=== PATIENT | male | born 1935 | race Caucasian/White ===

== ENCOUNTER 2021-06-06 10:47 | Emergency (ER) | payer MEDICARE, OTHER ==
[2021-06-06] MEDS: Sodium Chloride 0.9% 1,000 ML IV ONE (11:10)
[2021-06-06] MEDS: Ondansetron 4 MG/2 ML SDV IVPUSH ONE (11:10)
[2021-06-06] MEDS: Sodium Chloride 0.9% 1,000 ML ONE (11:25)
[2021-06-06] MEDS: Ondansetron 4 MG/2 ML SDV ONE (11:27)
[2021-06-06 11:34] LABS: ANION GAP 17.6 mmol/L (5-15); CHLORIDE,CL 106 mmol/L (98-107); SODIUM,NA 143 mmol/L (136-145)
[2021-06-06 13:07] VITALS: BP 158/74; PULSE 58
== END 2021-06-06 13:25 | disposition home or self-care (01) ==
LOC: KA.ED 10:47
DX: R55 Syncope and collapse (principal); R11.2 Nausea with vomiting, unspecified; I10 Essential (primary) hypertension; Z88.5 Allergy status to narcotic agent; Z79.82 Long term (current) use of aspirin; Z79.899 Other long term (current) drug therapy
CPT/HCPCS: 36415; 70450; 80053; 81001; 83880; 84484; 85025; 85610; 85730; 93005; 93010; 96374; 99284; 99285-25; J2405; J7030

== ENCOUNTER 2023-06-11 12:28 | Emergency (ER) | payer MEDICARE ==
[2023-06-11] MEDS: Nitroglycerin 0.4 MG Tab.SL ONE (12:54)
[2023-06-11] MEDS: Aspirin 81 MG Tab.Chew ONE (12:54)
[2023-06-11] MEDS: Aspirin 81 MG Tab.Chew PO ONE (12:55)
[2023-06-11] MEDS: Nitroglycerin 0.4 MG Tab.SL SL PRN (12:56)
[2023-06-11 12:57] LABS: BASOPHILS ABSOLUTE AUTO 0.06 10^3/uL (0.00-0.10); BASOPHILS PERCENT AUTO 0.5 % (0.0-1.0); EOSINOPHILS ABSOLUTE AUTO 0.13 10^3/uL (0.10-0.30); EOSINOPHILS PERCENT AUTO 1.2 % (1.0-3.0); HEMATOCRIT 41.3 % (40.0-52.0); HEMOGLOBIN 14.4 g/dL (13.0-17.0); IMMATURE GRAN ABSOLUTE AUTO 0.03 10^3/uL (0.00-0.50); IMMATURE GRAN PERCENT AUTO 0.3 % (0.0-5.0); LYMPHOCYTES PERCENT AUTO 24.2 % (20.0-40.0); MEAN CORPUSCULAR HEMOGLOBIN 32.6 pg (27.0-31.0); MEAN CORPUSCULAR HGB CONC 34.9 g/dL (32.0-36.0); MEAN CORPUSCULAR VOLUME 93.4 fL (82.0-92.0); MEAN PLATELET VOLUME 9.6 fL (7.4-10.4); MONOCYTES ABSOLUTE AUTO 1.36 10^3/uL (0.10-0.80); MONOCYTES PERCENT AUTO 12.2 % (2.0-8.0); NEUTROPHILS ABSOLUTE AUTO 6.89 10^3/uL (2.50-7.00); NEUTROPHILS PERCENT AUTO 61.6 % (50.0-70.0); PLATELET COUNT,PLT 216 10^3/uL (150-400); RED BLOOD CELL COUNT 4.42 10^6/uL (4.50-6.00); RED CELL DISTRIBUTION WIDTH 13.3 % (11.5-14.5); WHITE BLOOD CELL COUNT,WBC 11.17 10^3/uL (5.00-10.00)
[2023-06-11 13:14] LABS: ALANINE AMINOTRANSFERASE,ALT 16 U/L (14-63); ALKALINE PHOSPHATASE 43 U/L (46-116); ANION GAP 11.5 mmol/L (5-15); ASPARTATE AMNIOTRANSFERASE,AST 14 U/L (15-37); BILIRUBIN TOTAL 0.6 mg/dL (0.2-1.0); BLOOD UREA NITROGEN,BUN 23 mg/dL (7-18); CARBON DIOXIDE,CO2 26.8 mmol/L (21.0-32.0); CHLORIDE,CL 105 mmol/L (98-107); CREATININE 0.94 mg/dL (0.51-1.17); GLUCOSE RANDOM 97 mg/dL (70-140); POTASSIUM,K 4.3 mmol/L (3.5-5.1); PROTEIN TOTAL,TP 6.8 g/dL (6.4-8.2); SODIUM,NA 139 mmol/L (136-145)
[2023-06-11 13:21] LABS: CALCIUM 8.5 mg/dL (8.7-10.3)
[2023-06-11 13:24] LABS: ESTIMATED GFR 79 mL/min (>=60)
[2023-06-11 14:12] VITALS: BP 168/100; PULSE 68
== END 2023-06-11 16:10 | disposition home or self-care (01) ==
LOC: KA.ED 12:28
DX: I20.9 Angina pectoris, unspecified (principal); R79.89 Other specified abnormal findings of blood chemistry; I10 Essential (primary) hypertension; Z88.8 Allergy status to other drugs, medicaments and biological substances; Z88.5 Allergy status to narcotic agent; Z91.018 Allergy to other foods; Z79.82 Long term (current) use of aspirin; Z79.899 Other long term (current) drug therapy; Z86.19 Personal history of other infectious and parasitic diseases; Z90.49 Acquired absence of other specified parts of digestive tract
CPT/HCPCS: 36415; 71045; 80053; 84484; 85025; 99285; A9270; 93010; 99284

== ENCOUNTER 2023-06-18 11:05 | Emergency (ER) | payer MEDICARE ==
[2023-06-18 11:54] LABS: BILIRUBIN TOTAL 0.6 mg/dL (0.2-1.0); CREATININE 0.96 mg/dL (0.51-1.17); EST CRCL DRUG DOSING (CG) 57.03 mL/min
[2023-06-18] MEDS: Sodium Chloride 0.9% 1,000 ML IV ONE (12:02)
[2023-06-18 12:04] LABS: BASOPHILS ABSOLUTE AUTO 0.04 10^3/uL (0.00-0.10); BASOPHILS PERCENT AUTO 0.3 % (0.0-1.0); EOSINOPHILS ABSOLUTE AUTO 0.18 10^3/uL (0.10-0.30); EOSINOPHILS PERCENT AUTO 1.5 % (1.0-3.0); HEMATOCRIT 44.9 % (40.0-52.0); HEMOGLOBIN 15.6 g/dL (13.0-17.0); IMMATURE GRAN ABSOLUTE AUTO 0.02 10^3/uL (0.00-0.50); IMMATURE GRAN PERCENT AUTO 0.2 % (0.0-5.0); LYMPHOCYTES ABSOLUTE AUTO 2.95 10^3/uL (1.00-4.00); LYMPHOCYTES PERCENT AUTO 24.5 % (20.0-40.0); MEAN CORPUSCULAR HEMOGLOBIN 32.5 pg (27.0-31.0); MEAN CORPUSCULAR HGB CONC 34.7 g/dL (32.0-36.0); MEAN CORPUSCULAR VOLUME 93.5 fL (82.0-92.0); MEAN PLATELET VOLUME 8.9 fL (7.4-10.4); MONOCYTES PERCENT AUTO 7.5 % (2.0-8.0); NEUTROPHILS ABSOLUTE AUTO 7.95 10^3/uL (2.50-7.00); PLATELET COUNT,PLT 352 10^3/uL (150-400); RED CELL DISTRIBUTION WIDTH 12.9 % (11.5-14.5); WHITE BLOOD CELL COUNT,WBC 12.04 10^3/uL (5.00-10.00)
[2023-06-18 12:20] LABS: ALBUMIN 2.76 g/dL (3.40-5.00); ANION GAP 16.3 mmol/L (5-15); CARBON DIOXIDE,CO2 22.2 mmol/L (21.0-32.0); POTASSIUM,K 4.5 mmol/L (3.5-5.1)
[2023-06-18 13:18] VITALS: BP 127/63; PULSE 59
[2023-06-18 13:40] LABS: BILIRUBIN,URINE NEGATIVE (NEGATIVE); COLOR,URINE DARK YELLOW (YELLOW); GLUCOSE,URINE NEGATIVE (NEGATIVE); KETONES,URINE TRACE mg/dL (NEGATIVE); LEUKOCYTE ESTERASE,URINE NEGATIVE (NEGATIVE); NITRITE,URINE NEGATIVE (NEGATIVE); OCCULT BLOOD,URINE TRACE-INTACT (NEGATIVE); PH,URINE 5.5 (5.0-9.0); PROTEIN,URINE TRACE mg/dL (NEGATIVE); UROBILINOGEN,URINE 0.2 E.U./dL (0.2-1.0)
[2023-06-18 13:42] LABS: APPEARANCE,URINE SLIGHTLY CLOUDY (CLEAR)
[2023-06-18 13:44] LABS: BACTERIA,URINE RARE /HPF (NONE TO FEW); EPITHELIAL CELLS,URINE OCCASIONAL /LPF; RBC,URINE 0-5 /HPF (0-5); WBC,URINE 0-5 /HPF (0-5)
[2023-06-18 13:45] LABS: GRANULAR CASTS,URINE FEW; HYALINE CASTS,URINE RARE; MUCUS,URINE MANY /LPF (NEGATIVE)
== END 2023-06-18 14:05 | disposition home or self-care (01) ==
LOC: KA.ED 11:05
DX: E86.0 Dehydration (principal); I95.1 Orthostatic hypotension; Z88.8 Allergy status to other drugs, medicaments and biological substances; Z88.5 Allergy status to narcotic agent; Z91.048 Other nonmedicinal substance allergy status; Z79.82 Long term (current) use of aspirin; Z79.899 Other long term (current) drug therapy; Z86.19 Personal history of other infectious and parasitic diseases; Z90.49 Acquired absence of other specified parts of digestive tract
CPT/HCPCS: 36415; 71045; 80053; 81001; 84484; 85025; 93010; 96360; 99284; 99284-25; J7030